=== PATIENT | male | born 1970 | race Caucasian/White ===

== ENCOUNTER 2025-01-08 07:55 | Emergency (ER) | payer OTHER ==
[~2025-01-08] VITALS: Ht 175.3 cm; Wt 105.0 kg
--- NOTE | 2025-01-08 08:21 | ED.PDOC ---
General HPI Comments A 54 YEAR OLD MALE BIB SPOUSE, PRESENTS TO THE ED WITH COMPLAINT OF RIGHT LOWER BACK PAIN RADIATING TO HIS FLANK AND ABDOMINAL REGION, ASSOCIATED WITH NAUSEA AND VOMITING THAT STARTED TODAY AT 0400. PATIENT DESCRIBED PAIN SHARP AND PRESENTS WITH EPISODES WHERE HE GOES LIMP DUE TO EXCRUCIATING PAIN. PATIENT MENTIONS HAVING A KIDNEY STONE IN THE PAST. PATIENT DENIES FEVER, CHILLS, SHORTNESS OF BREATH, CHEST PAIN, ABDOMINAL PAIN, NAUSEA, VOMITING, HEADACHE, OR OTHER COMPLAINTS. NO OTHER SYMPTOMS OR MODIFYING FACTORS AT THIS TIME. PATIENT IS ALERT, ORIENTED X 4, AND HAS STEADY GAIT. Chief Complaint: Flank Pain Time Seen by MD: 08:02 Reviewed notes: Nurses Notes, Medications, Allergies Allergies: Coded Allergies: NO KNOWN ALLERGIES (Unverified , 01/08/25) Information Source: Patient, Spouse Mode of Arrival: Wheelchair Severity: Moderate Timing: Hours Duration: Since onset Onset: Spontaneous History of: Kidney stone Location: (R) Flank Modifying factors: None associated signs and symptoms: Nausea, Vomiting, Flank Pain, Back Pain Past Medical History PAST MEDICAL HISTORY: COPD, High Lipids, HTN, Kidney Stones Past Medical History (Other): VASOVAGAULS Surgical History: Denies all surgeries Family History Family History: Reviewed,noncontributory to illness Social History Smoker: Non-Smoker Alcohol: Occasionally Drugs: Denies Drug Use Lives In: Home Constitutional: reports: others (ANXIOUS ); denies: chills, diaphoresis, f atigue, fever, malaise, sweats, weakness EENTM: denies: blurred vision, double vision, ear bleeding, ear discharge, ear drainage, ear pain, ear ringing, eye pain, eye redness, hearing loss, mouth pain, mouth swelling, nasal discharge, nose bleeding, nose congestion, nose pain, photophobia, tearing, throat pain, throat swelling, voice changes, others Respiratory: denies: cough, hemoptysis, orthopnea, SOB at rest, shortness of breath, SOB with excertion, stridor, wheezing, others Cardiovascular: denies: chest pain, dizzy spells, diaphoresis, Dyspnea on exertion, edema, irregular heart beat, left arm pain, lightheadedness, palpitations, PND, syncope, others Gastrointestinal: reports: abdominal pain, nausea, vomiting; denies: abdomen distended, blood streaked bowels, constipated, diarrhea, dysphagia, difficulty swallowing, hematemesis, melena, poor appetite, poor fluid intake, rectal bleeding, rectal pain, others Genitourinary: reports: flank pain; denies: burning, dysuria, frequency, hematuria, incontinence, penile discharge, penile sore, pain, testicle pain, testicle swelling, urgency, others Neurological: denies: dizziness, fainting, headache, left sided numbness, left sided weakness, numbness, paresthesia, pre-existing deficit, right sided numbness, right sided weakness, seizure, speech problems, tingling, tremors, weakness, others Musculoskeletal: denies: back pain, gout, joint pain, joint swelling, muscle pain, muscle stiffness, neck pain, others Integumetry: denies: bruises, change in color, change in hair/nails, dryness, laceration, lesions, lumps, rash, wounds, others Allergic/Immunocompromised: denies: Difficulty Healing, Frequent Infections, Hives, Itching, others Hematologic/Lymphatic: denies: anemia, blood clots, easy bleeding, easy bruising, swollen glands, others Endocrine: denies: excessive hunger, excessive sweating, excessive thirst, excessive urination, flushing, intolerance to cold, intolerance to heat, unexplained weight gain, unexplained weight loss, others Psychiatric: denies: anxiety, bipolar disorder, depression, hopeless, panic disorder, schizophrenia, sleepless, suicidal, others All Other Systems: Reviewed and Negative Physical Exam General Appearance: Moderate Distress, Normal HEENT: Normal ENT Inspection, PERRL/EOMI, Pharynx Normal, TMs Normal Neck: Full Range of Motion, Non-Tender, Normal, Normal Inspection Respiratory: Chest Non-Tender, Lungs Clear, No Accessory Muscle Use, No Respiratory Distress, Normal Breath Sounds Cardiovascular: No Edema, No JVD, No Murmur, No Gallop, Normal Peripheral Pulses, Regular Rate/Rhythm Breast Exam: Deferred Gastrointestinal: No Organomegaly, No Pulsatile Mass, Normal Bowel Sounds, Soft, Tenderness (RIGHT LOWER ABD AND FLANK, NO GUARDING AND REBOUND TENDERNESS. ) Genitalia: Deferred Pelvic: Normal External Exam Rectal: Deferred Extremities: No calf tenderness, Normal capillary refill, Normal inspection, Normal range of motion, Non-tender, No pedal edema Musculoskeletal : Apperance: Normal Neurologic: Alert, health clinician II-XII nml as Tested, No Motor Deficits, Normal Affect, Normal Mood, No Sensory Deficits Cerebellar Function: Normal Reflexes: Normal Skin: Dry, Normal Color, Warm Peripheral Pulses: 2+ carotid (R), 2+ carotid (L) Lymphatic: No Adenopathy Was a procedure done? Was a procedure done?: No Differential Diagnosis Kidney stone (Female): N/A Kidney stone (Male): DJD, Pyelonephritis, Strain, Urinary obstruction, Urolithiasis Urinary Problem (Male): Urethritis, Urolithiasis, UTI X-Ray, Labs, Meds, VS Vital Signs Date Time Temp Pulse Resp B/P (MAP) Pulse Ox O2 Delivery O2 Flow Rate FiO2 01/08/25 11:17 58 16 108/65 (79) 96 01/08/25 09:51 84 16 98 Room Air 01/08/25 09:50 98.2 84 16 131/77 (95) 98 98.2 01/08/25 08:55 56 18 114/74 01/08/25 08:47 98.2 56 18 114/74 (87) 97 98.2 01/08/25 07:55 98.2 68 24 133/85 68 98.2 Lab Test 01/08/25 08:20 01/08/25 08:07 Range/Units White Blood Count 14.2 H 4.4-10.8 10^3/uL Red Blood Count 4.87 4.5-5.90 10^6/uL Hemoglobin 16.4 13.5-17.5 g/dL Hematocrit 46.9 41.0-53.0 % Mean Corpuscular Volume 96.3 80.0-100.0 fL Mean Corpuscular Hemoglobin 33.6 H 28.0-32.0 pg Mean Corpuscular Hemoglobin Concent 34.9 32.0-36.0 g/dL Red Cell Distribution Width 12.4 11.8-14.3 % Platelet Count 371 140-450 10^3/uL Mean Platelet Volume 8.1 6.9-10.8 fL Neutrophils (%) (Auto) 80.7 H 37.0-80.0 % Lymphocytes (%) (Auto) 13.9 10.0-50.0 % Monocytes (%) (Auto) 4.7 0.0-12.0 % Eosinophils (%) (Auto) 0.3 0.0-7.0 % Basophils (%) (Auto) 0.4 0.0-2.0 % Neutrophils # (Auto) 11.5 H 1.6-8.6 10 ^3/uL Lymphocytes # (Auto) 2.0 0.4-5.4 10 ^3/uL Monocytes # (Auto) 0.7 0-1.3 10 ^3/uL Eosinophils # (Auto) 0 0-0.8 10 ^3/uL Basophils # (Auto) 0.1 0-0.2 10 ^3/uL Nucleated Red Blood Cells 0.0 % Sodium Level 141 136-145 mmol/L Potassium Level 4.0 3.5-5.1 mmol/L Chloride Level 108 H 98-107 mmol/L Carbon Dioxide Level 21 20-31 mmol/L Anion Gap 12 5-15 Blood Urea Nitrogen 17 9-23 mg/dL Creatinine 1.33 H 0.700-1.30 mg/dL Glomerular Filtration Rate Calc 64 >90 mL/min BUN/Creatinine Ratio 12.8 10.0-20.0 Serum Glucose 132 H 74-106 mg/dL Calcium Level 9.4 8.7-10.4 mg/dL Total Bilirubin 0.9 0.2-1.0 mg/dL Aspartate Amino Transferase (AST) 20 13-40 U/L Alanine Aminotransferase (ALT) 25 7-40 U/L Alkaline Phosphatase 65 46-116 U/L Total Protein 7.0 5.7-8.2 g/dL Albumin 4.3 3.2-4.8 g/dL Urine Color Yellow Yellow Urine Clarity Clear Clear Urine pH 5.5 5.0-9.0 Urine Specific [place] 1.029 1.001-1.035 Urine Protein Trace H Negative Urine Ketones Negative Negative Urine Blood 3+ H Negative /uL Urine Nitrite Negative Negative Urine Bilirubin Negative Negative Urine Urobilinogen Normal Negative mg/dL Urine Leukocyte Esterase Negative Negative /uL Urine RBC 255 0 - 3 /hpf Urine Microscopic WBC < 1 0-3 /HPF Urine Squamous Epithelial Cells Few <5 /hpf Urine Bacteria None seen None Seen /hpf Urine Mucus Few None Seen Urine Glucose Normal Normal mg/dL Current Medications Medications (Trade) Dose Ordered Sig/[place] Route Start Time Stop Time Status Last Admin Sodium Chloride 1,000 ml @ 1,000 mls/hr Q1H ONCE IV 01/08/25 08:15 01/08/25 09:14 DC 01/08/25 08:30 Tamsulosin HCl (Flomax) 0.8 mg ONCE ONCE PO 01/08/25 08:15 01/08/25 08:16 DC 01/08/25 08:31 Sodium Chloride 1,000 ml @ 1,000 mls/hr Q1H ONCE IV 01/08/25 10:15 01/08/25 11:14 DC 01/08/25 10:09 Oxycodone/ Acetaminophen (Percocet 5/ 325MG Tablet) 1 tab ONCE ONCE PO 01/08/25 10:45 01/08/25 11:27 DC 01/08/25 11:32 [place] [id number] Ph: [phone] DIAGNOSTIC IMAGING Diagnostic Imaging Report : [id number] Signed PATIENT: ANJALI DUNNE ACCT: [id number] UNIT: [id number] : 1970 LOC: ER ROOM / BED: / AGE / SEX: 54 / M ADM STATUS: REG ER SERVICE [id number] ORDERING PHYSICIAN: ESPERANZA MERRITT PROCEDURE(s): ABPL - CT AB PEL WO CON-NO ORAL OR IV REASON: right flank pain ORDER NUMBER(s): [id number], ACCESSION NUMBER(s): [id number] Exam: CT CT AB PEL WO CON-NO ORAL OR IV History: Right flank pain Comparison Study: None Technique: Multidetector spiral CT of the abdomen and pelvis was performed from lung bases to pubic symphysis. Imaging was performed without intravenous contrast. Coronal and sagittal multiplanar reformats were obtained from the axial data set by the technologist. Radiation Dose : 1. Abdomen/Pelvis: CTDIvol 18.99 mGy, DLP 991.5 mGy*cm. Findings: Evaluation of vasculature and solid organs is limited due to lack of intravenous contrast use. Lung Bases: Lung bases are clear. Visualized portions of the heart and pericardium are unremarkable. Liver: The liver is normal in size. No focal lesions. Gallbladder and Biliary Tree: The gallbladder is unremarkable. No intrahepatic or extrahepatic biliary ductal dilatation. Spleen: Unremarkable Pancreas: The pancreas is grossly unremarkable. Adrenal Glands: Unremarkable Kidneys: There is mild right hydronephrosis due to a 3 mm obstructive calculus at the right ureterovesical junction. Nonobstructive right intrarenal calculus measuring 3 mm. GI tract: The stomach is grossly normal in appearance. No evidence of small bowel wall thickening or abnormal dilatation to suggest bowel obstruction. Colonic diverticulosis without acute diverticulitis. Normal appendix. Peritoneum/mesentery/retroperitoneum. No evidence of free intraperitoneal air. No ascites. No evidence of suspicious lymphadenopathy. Abdominal Wall: Unremarkable. Vasculature: The visualized abdominal aorta is normal in size and caliber. Evaluation of abdominal and pelvic vessels is limited due to lack of intravenous contrast. Urinary Bladder: Grossly unremarkable for degree of distention. Pelvic Organs: Unremarkable Musculoskeletal: No aggressive focal bony lesions, acute fractures or dislocation. Bilateral hip joint degenerative changes. Soft tissues: Fat containing umbilical hernia noted. Bilateral fat containing inguinal hernias. IMPRESSION: 1. Mild right hydronephrosis due to a 3 mm obstructive calculus at the right ureterovesical junction and a nonobstructive right intrarenal calculus measuring 3 mm. 2. Colonic diverticulosis without acute diverticulitis. ATED BY: DANG DYER MD DICTATED DATE/TIME: 01/08/25927 SIGNED BY: DANG DYER MD SIGNED DATE/TIME: 01/08/25927 CC: X-Ray, Labs, Meds, VS Comment EXTERNAL MEDICAL RECORDS REVIEWED: [NONE] INDEPENDENT HISTORIANS: SOCIAL DETERMINANTS OF HEALTH: [NONE] LABS ORDERED: CBC, CMP, UA REVIEWED AND INTERPRETED RESULTS: NEG UA IMAGING ORDERED: CT ABD TREATMENTS ORDERED: TORADOL 30MG IM, MORPHINE 1MG IV, ZOFRAN 4MG IV, FLOMAX 0.8MG PO PROCEDURES PERFORMED: NONE CRITICAL CARE TIME: NONE I HAVE DISCUSSED THE PATIENT WITH THE ATTENDING PHYSICIAN, HE AGREES WITH THE PATIENT'S PLAN OF CARE AND DISPOSITION SHARED DECISION MAKING: DISCUSSED WITH PATIENT THAT THEIR WORKUP WAS NORMAL HOWEVER GIVEN PERSISTENT PAIN DESPITE TREATMENT ORDERED (MORPHINE 1MG IV AND TORADOL 30MG IM), THE PATIENT REQUIRED ADMISSION FOR PAIN MANAGEMENT. 10:[address] PANIAGUA REGARDING PT'S RENAL STONES AND MODERATE PAIN. STATES HE WILL COME TO SEE PT. 10:40 DR. PANIAGUA SPOKE WITH PATIENT'S OVER THE PHONE. DR. PANIAGUA MENTIONED THAT HE WILL COME TO THE ER TO ADMIT PATIENT FOR PAIN MANAGEMENT OR TO F/U AT [facility] TOMORROW (01/09/25). 14:00 DID NOT SEE PT YET. PATIENT HOWEVER STATES WAITING IS TOO LONG AND WILL VISIT [facility] TODAY TO AWAIT DR. PANIAGUA ORDERS. PT LEFT ER AND ELOPED. Time of 1ST Reevaluation: 08:30 Reevaluation 1ST: Unchanged Time of 2ND Reevaluation: 10:30 Reevaluation 2ND: Unchanged Time of 3RD Reevaluation: 14:00 Reevaluation 3RD: Improved Patient Education/Counseling: Diagnosis, Treatment Family Education/Counseling: Diagnosis, Treatment SEPSIS Sepsis Screen Physician Orders Heplock Iv (01/08/25 ) Ct Ab Pel Wo Con-No Oral Or Iv (01/08/25 08:37) Vital Signs Date Time Temp Pulse Resp B/P (MAP) Pulse Ox O2 Delivery O2 Flow Rate FiO2 01/08/25 11:17 58 16 108/65 (79) 96 01/08/25 09:51 84 16 98 Room Air 01/08/25 09:50 98.2 84 16 131/77 (95) 98 98.2 01/08/25 08:55 56 18 114/74 01/08/25 08:47 98.2 56 18 114/74 (87) 97 98.2 01/08/25 07:55 98.2 68 24 133/85 68 98.2 Laboratory Tests Test 01/08/25 08:20 White Blood Count 14.2 10^3/uL (4.4-10.8) H Medications Medications Dose Ordered Sig/[place] Route Start Time Stop Time Status Last Admin Dose Admin Oxycodone/ Acetaminophen 1 tab ONCE ONCE PO 01/08/25 10:45 01/08/25 11:27 DC 01/08/25 11:32 Sodium Chloride 1,000 ml @ 1,000 mls/hr Q1H ONCE IV 01/08/25 08:15 01/08/25 09:14 DC 01/08/25 08:30 Sodium Chloride 1,000 ml @ 1,000 mls/hr Q1H ONCE IV 01/08/25 10:15 01/08/25 11:14 DC 01/08/25 10:09 Tamsulosin HCl 0.8 mg ONCE ONCE PO 01/08/25 08:15 01/08/25 08:16 DC 01/08/25 08:31 Departure 1 Departure Time of Disposition: 14:00 Impression: Primary Impression: Bilateral kidney stones Additional Impressions: Ureterovesical junction (UVJ) obstruction Calculus of ureterovesical junction (UVJ) Disposition: 07 LEFT AWOL/ELOPED Condition: Fair Additional Instructions: Critical Care Note Critical Care Time?: No Stability Stability form required: No I personally scribed for ESPERANZA MERRITT ([email or web address]) on 01/08/25 at 08:21. Electronically submitted by Nicole Jaramillo ([facility]). I personally scribed for ESPERANZA MERRITT ([email or web address]) on 01/08/25 at 09:57. Electronically submitted by Nicole Jaramillo ([facility]). I personally scribed for ESPERANZA MERRITT ([email or web address]) on 01/08/25 at 13:59. Electronically submitted by Nicole Jaramillo ([facility]). I personally scribed for ESPERANZA MERRITT ([email or web address]) on 01/08/25 at 14:09. Electronically submitted by Nicole Jaramillo ([facility]). ESPERANZA MERRITT Jan 08, 2025 08:21
[2025-01-08] MEDS: KETOROLAC TROMETH 30 MG/ML 1ML VIAL IV ONE (08:30)
[2025-01-08] MEDS: SODIUM CHLORIDE 0.9% 1,000 ML IV ONE ×2 (08:30→10:09)
[2025-01-08] MEDS: ONDANSETRON HCL 4 MG/2 ML VIAL IV ONE (08:30)
[2025-01-08] MEDS: TAMSULOSIN HYDROCHLORIDE 0.4 MG CAP PO ONE (08:31)
[2025-01-08 08:53] LABS: Urine Protein, UAD TRACE (Negative)
[2025-01-08 08:54] LABS: Hematocrit 46.9 % (41.0-53.0); Hemoglobin 16.4 g/dL (13.5-17.5); Mean Corpuscular Hemoglobin 33.6 pg (28.0-32.0); Mean Corpuscular Volume 96.3 fL (80.0-100.0); Nucleated Red Blood Cells % 0.0 %
[2025-01-08] MEDS: MORPHINE SULFATE 4 MG/ML SYR/VIAL IV ONE (08:55)
[2025-01-08 09:11] LABS: Alanine Aminotransferase 25 U/L (7-40); Albumin 4.3 g/dL (3.2-4.8); Alkaline Phosphatase 65 U/L (46-116); Anion Gap 12 (5-15); BUN/Creatinine Ratio 12.8 (10.0-20.0); Blood Urea Nitrogen 17 mg/dL (9-23); Calcium 9.4 mg/dL (8.7-10.4); Carbon Dioxide 21 mmol/L (20-31); Potassium 4.0 mmol/L (3.5-5.1); Sodium 141 mmol/L (136-145); Total Protein 7.0 g/dL (5.7-8.2)
[2025-01-08 09:12] LABS: Bilirubin, Total 0.9 mg/dL (0.2-1.0)
[2025-01-08 09:13] LABS: Chloride 108 mmol/L (98-107); Glucose 132 mg/dL (74-106)
--- NOTE | 2025-01-08 09:30 | DVH ---
Exam: CT CT AB PEL WO CON-NO ORAL OR IV History: Right flank pain Comparison Study: None Technique: Multidetector spiral CT of the abdomen and pelvis was performed from lung bases to pubic s ymphysis. Imaging was performed without intravenous contrast. Coronal and sagittal multiplanar reform ats were obtained from the axial data set by the technologist. Radiation Dose : 1. Abdomen/Pelvis: CTDIvol 18.99 mGy, DLP 991.5 mGy*cm. Findings: Evaluation of vasculature and solid organs is limited due to lack of intravenous contrast use. Lung Bases: Lung bases are clear. Visualized portions of the heart and pericardium are unremarkable. Liver: The liver is normal in size. No focal lesions. Gallbladder and Biliary Tree: The gallbladder is unremarkable. No intrahepatic or extrahepatic bilia ry ductal dilatation. Spleen: Unremarkable Pancreas: The pancreas is grossly unremarkable. Adrenal Glands: Unremarkable Kidneys: There is mild right hydronephrosis due to a 3 mm obstructive calculus at the right ureterove sical junction. Nonobstructive right intrarenal calculus measuring 3 mm. GI tract: The stomach is grossly normal in appearance. No evidence of small bowel wall thickening or abnormal dilatation to suggest bowel obstruction. Colonic diverticulosis without acute diverticulitis . Normal appendix. Peritoneum/mesentery/retroperitoneum. No evidence of free intraperitoneal air. No ascites. No evidenc e of suspicious lymphadenopathy. Abdominal Wall: Unremarkable. Vasculature: The visualized abdominal aorta is normal in size and caliber. Evaluation of abdominal a nd pelvic vessels is limited due to lack of intravenous contrast. Urinary Bladder: Grossly unremarkable for degree of distention. Pelvic Organs: Unremarkable Musculoskeletal: No aggressive focal bony lesions, acute fractures or dislocation. Bilateral hip join t degenerative changes. Soft tissues: Fat containing umbilical hernia noted. Bilateral fat containing inguinal hernias. IMPRESSION: 1. Mild right hydronephrosis due to a 3 mm obstructive calculus at the right ureterovesical junction and a nonobstructive right intrarenal calculus measuring 3 mm. 2. Colonic diverticulosis without acute diverticulitis.
[2025-01-08 09:50] VITALS: TEMP 98.2
[2025-01-08 11:17] VITALS: BP 108/65; PULSE 58; RESP 16; O2SAT 96
[2025-01-08] MEDS: OXYCODONE W/ ACETAMINOPHEN 5/325MG TABLET PO ONE (11:32)
[2025-01-08] MEDS: LACTATED RINGER'S 1,000 ML IV ONE (13:55)
== END 2025-01-08 13:59 | disposition home or self-care (01) ==
LOC: ER 07:55
DX: N13.2 Hydronephrosis with renal and ureteral calculous obstruction (principal); I10 Essential (primary) hypertension; J44.9 Chronic obstructive pulmonary disease, unspecified; E78.5 Hyperlipidemia, unspecified; Z98.890 Other specified postprocedural states
CPT/HCPCS: 36415; 74176; 80053; 81001; 85025; 96360; 96361; 99284; J7030; J1885; J2405